=== PATIENT | female | born 1980 | race Two or more races ===

== ENCOUNTER → 2024-09-27 | Outpatient (CLI) | payer MEDICAID, SELFPAY ==
--- NOTE | 2024-09-27 10:28 | XR_ITS ---
Examination: Lumbar spine 7 views TECHNIQUE: AP lateral coned lateral lower lumbar spine standing lateral flexion standing lateral extension DURAN FRISIAN total 7 views Exam date and time: September 27, 2024 1144 hours INDICATIONS: Lower back pain radiating to the left hip beginning 8 days ago. FINDINGS: Adequate alignment lumbar vertebral bodies Mild to moderate diffuse facet arthropathy No lumbar fracture Mild disc narrowing L5-S1 No spondylolisthesis Significantly reduced range of motion between flexion and extension IMPRESSION: Mild degenerative disc disease L5-S1
--- NOTE | 2024-09-27 10:28 | XR_ITS ---
Examination: Bilateral AP pelvis 2 views TECHNIQUE: AP pelvis hips in neutral position, AP pelvis hips abduction position Exam date and time: September 27, 2024 1152 hours INDICATIONS: Left hip pain beginning 8 days ago. FINDINGS: No right or left hip fracture or hip dislocation Minimal osteoarthritis bilateral hips Greater trochanteric bursitis left hip Bones of the pelvis intact IMPRESSION: Minimal osteoarthritis bilateral hips Greater trochanteric bursitis left hip
== END | disposition home or self-care (01) ==
PROVIDERS: PCP Nurse Practitioner Acute Care; Referring Provider Nurse Practitioner Acute Care; Visit Provider Nurse Practitioner Acute Care
DX: M51.379 Other intervertebral disc degeneration, lumbosacral region without mention of lumbar back pain or lower extremity pain (principal); M16.0 Bilateral primary osteoarthritis of hip; M70.62 Trochanteric bursitis, left hip
CPT/HCPCS: 72114; 73521

== ENCOUNTER → 2025-02-06 | Outpatient (CLI) | payer MEDICAID, SELFPAY ==
--- NOTE | 2025-02-06 10:32 | XR_ITS ---
Examination: Thoracic spine 3 views Technique one AP lateral coned lateral upper dorsal spine 3 views Date and time: February 06, 2025 1059 hours INDICATIONS: Thoracic spine pain one month. FINDINGS: Thoracic dextroscoliosis 10 degrees No thoracic fracture Minimal thoracic spondylosis IMPRESSION: Minimal thoracic spondylosis
== END | disposition home or self-care (01) ==
PROVIDERS: PCP Nurse Practitioner Primary Care; Referring Provider Nurse Practitioner Primary Care; Visit Provider Nurse Practitioner Primary Care
DX: M47.814 Spondylosis without myelopathy or radiculopathy, thoracic region (principal); M41.9 Scoliosis, unspecified
CPT/HCPCS: 72070

== ENCOUNTER → 2025-05-20 | Outpatient (CLI) | payer MEDICAID, SELFPAY ==
[2025-05-17 11:36] LABS: HCG Qualitative,Urine Negative
--- NOTE | 2025-05-20 13:30 | XR_ITS ---
Examination: CT chest, without intravenous contrast. Sagittal and coronal 2-D reconstructions. Exam date and time: April 2017, 2024, 1343 hours INDICATIONS: History left lung nodule diagnosed 6 months ago CTDI:vol (mGy) 18 DLP: (mGycm) 550 Technique: Multiple 3.0 mm axial sections of the chest to been obtained. Bone and lung density settings are obtained. Sagittal and coronal 2-D reconstructions have been obtained. Low dose protocols were performed. One or more of the following dose reduction techniques were used; automated exposure control, adjustment of the mA and/or KV according to patient size, use of iterative reconstruction technique. Findings: Thoracic aorta pulmonary arteries appear intact No paratracheal tracheobronchial or bronchopulmonary adenopathy. Minor atelectasis in the right lower lung zone No pneumonia pulmonary edema pleural disease or noncalcified pulmonary nodules No visualized liver or splenic lesion Contracted gallbladder No pancreatic or adrenal mass No hydronephrosis IMPRESSION: No mediastinal lymphadenopathy No pneumonia, pulmonary edema, pleural disease or noncalcified pulmonary nodules
== END | disposition home or self-care (01) ==
LOC: CCTX 13:18
PROVIDERS: Referring Provider Nurse Practitioner Primary Care; Visit Provider Nurse Practitioner Primary Care
DX: R91.1 Solitary pulmonary nodule (principal); Z32.00 Encounter for pregnancy test, result unknown
CPT/HCPCS: 71250; 81025